=== PATIENT | female | born 1985 | race American Indian/Alaskan Native ===

== ENCOUNTER 2017-10-22 18:30 | Emergency (ER) | payer MEDICAID ==
[2017-10-22 19:11] LABS: Basophils % (Auto) 1.2 % (0.0-1.8); Eosinophils # (Auto) 0.1 K/mm3 (0.0-0.4); Eosinophils % (Auto) 1.3 % (0.0-4.3); Hematocrit 34.1 % (30.3-42.9); Hemoglobin 11.2 gm/dl (10.1-14.3); Lymphocytes # (Auto) 1.5 K/mm3 (1.2-5.4); Lymphocytes % (Auto) 36.6 % (13.4-35.0); Mean Corpuscular HGB Conc 33 % (30-34); Mean Corpuscular Hemoglobin 28 pg (28-32); Mean Corpuscular Volume 84 fl (79-97); Monocytes # (Auto) 0.4 K/mm3 (0.0-0.8); Monocytes % (Auto) 8.3 % (0.0-7.3); Platelet Count 290 K/mm3 (140-440); Red Blood Count 4.05 M/mm3 (3.65-5.03)
[2017-10-22 19:23] LABS: BUN/Creatinine Ratio 18; Blood Urea Nitrogen 11 mg/dL (7-17); Calcium 8.7 mg/dL (8.4-10.2); Hemolysis Index 4
[2017-10-22] MEDS ORDERED: MORPHINE IV ONE (21:41)
[2017-10-22] MEDS ORDERED: CLEOCIN IV ONE (21:41)
[2017-10-22] MEDS ORDERED: TORADOL IV ONE (21:44)
--- NOTE | 2017-10-22 21:45 | Emergency Department Report ---
Abscess Boil HPI - HPI Chief Complaint: Dental/Oral Stated Complaint: SWELLING L SIDE OF FACE. Time Seen by Provider: 10/22/17 21:10 Duration: 1 Day Location: Head Severity: Mild History: Yes Pain, No Fever, No Purulent Drainage, No Numbness, No Foreign Body , No Previous History, No Insect Bite HPI: She was a 32-year-old female with a history of HIV who is not been compliant with her medication due to running out presents to ED complaining of left facial swelling 1 day. Patient states she woke up into the left temperature or vision was swelling and tender to touch. She denies any bite, trauma, injuries. She denies any ear pain, fever or any other problems Home Medications: Previous Rx's Medication Instructions Recorded Last Taken Type Emtricitabine/Tenofovir (Tdf) 1 each PO DAILY #30 tablet 10/22/17 Unknown Rx [Truvada 133 mg-200 mg Tablet] Ibuprofen [Motrin] 800 mg PO Q8HR PRN #30 tablet 10/22/17 Unknown Rx Sulfamethoxazole/Trimethoprim 1 each PO BID #20 tablet 10/22/17 Unknown Rx [Bactrim DS TAB] Allergies/Adverse Reactions: Allergies Allergy/AdvReac Type Severity Reaction Status Date / Time No Known Allergies Allergy Unverified 10/22/17 18:51 ED Review of Systems ROS: Stated complaint: SWELLING L SIDE OF FACE. Other details as noted in HPI Constitutional: denies: chills, fever Eyes: denies: eye pain, eye discharge, vision change ENT: denies: ear pain, throat pain Respiratory: denies: cough, shortness of breath, wheezing Cardiovascular: denies: chest pain, palpitations Endocrine: no symptoms reported Gastrointestinal: denies: abdominal pain, nausea, diarrhea Genitourinary: denies: urgency, dysuria, discharge Musculoskeletal: denies: back pain, joint swelling, arthralgia Skin: denies: rash, lesions Neurological: denies: headache, weakness, paresthesias Psychiatric: denies: anxiety, depression Hematological/Lymphatic: denies: easy bleeding, easy bruising ED Past Medical Hx - Past Medical History Hx HIV: Yes (virus) - Social History Smoking Status: Never Smoker Substance Use Type: None - Medications Home Medications: Home Medications Medication Instructions Recorded Confirmed Last Taken Type Emtricitabine/Tenofovir (Tdf) 1 each PO DAILY #30 tablet 10/22/17 Unknown Rx [Truvada 133 mg-200 mg Tablet] Ibuprofen [Motrin] 800 mg PO Q8HR PRN #30 tablet 10/22/17 Unknown Rx Sulfamethoxazole/Trimethoprim 1 each PO BID #20 tablet 10/22/17 Unknown Rx [Bactrim DS TAB] ED Abscess Boil Physical Exam - Exam General: Vital signs noted. No distress. Alert and acting appropriately. Front/Back of Body, Lg (Color): 1 - 4-5 cm tender mass Size: 5 cm Exam: Yes Tenderness, Yes Lymphangitis, Yes Normal Neurologic Exam, Yes Normal Circulation, No Fluctuance, No Surrounding Cellulites/Erythema, No Heart Murmur Exam: GENERAL: Alert and oriented x3, no apparent distress, Normal Gait, atraumatic. HEAD: Head is normocephalic and a-traumatic. EARS: symetrical, atraumatic, non tender, ear canal clear and moderate cerumen, tympanic membrance non inflamed. gross auditory nml bilaterally. NOSE: Nose symetrical, Nontender,Nares appeared normal. MOUTH:Mouth is well hydrated and without lesions. Tonsils nonerythematous or swollen, Uvula midline, Tongue not elevated. Mucous membranes are moist. Posterior pharynx clear, no exudate or lesions. Patent airways. NECK: Supple. Non edematous, No carotid bruits. No lymphadenopathy or thyromegaly. No C-spine tenderness ED Course Vital Signs 10/22/17 18:45 Temperature 99.1 F Pulse Rate 102 H Respiratory 18 Rate Blood Pressure 109/79 O2 Sat by Pulse 96 Oximetry Critical care attestation.: If time is entered above; I have spent that time in minutes in the direct care of this critically ill patient, excluding procedure time. ED Medical Decision Making - Lab Data Result diagrams: 10/22/17 18:59 10/22/17 18:59 - Radiology Data Radiology results: report reviewed, image reviewed FINAL REPORT PROCEDURE: CT FACIAL BONES WO CON TECHNIQUE: Computerized tomography of the facial bones and soft tissues with axial and coronal sections performed from the cranial aspect of the frontal sinuses to the caudal portion of the mandible without contrast material. HISTORY: pain swelling left TMJ region COMPARISON: No prior studies are available for comparison. FINDINGS: Bones: No significant abnormality. Paranasal sinuses: Mild opacification of the ethmoid sinuses.. Soft tissues: Minimal soft tissue swelling over the left cheek and temporomandibular joint region. No formed fluid collection or abscess.. Other: None. IMPRESSION: There is no evidence of an acute fracture to the facial bones. Mild opacification of the ethmoid sinuses. Minimal soft tissue swelling over the left cheek and temporal mandibular region. No formed abscess or fluid collection. Transcribed By: [facility] Dictated By: JUANCARLOS TOMLINSON MD Electronically Authenticated By: JUANCARLOS TOMLINSON MD Signed Date/Time: 10/22/17 2200 - Medical Decision Making 32-year-old female presents with possible perarotitis/adenopathy ED course: Patient received Toradol for pain, IV fluid, IV clindamycin , CBC BMP shows low wbc , low sodium but within normal limits. CT scan of the facial: See the report above I discussed this with the patient. I discussed the patient that this is an inflammation or infection of her glands. Discussed a airport skilled maintenance supervisor to follow up with infectious disease I discussed with the patient I would refill her Truvada today. She'll go home on antibiotics and pain medication as child. Sinuses fever, or infectious process due to labs. Therefore patient to be sent home on antibiotic therapy I discussed the patient with Rosanne at if worsening symptoms or new onset of symptoms to return to ED immediately. Vital signs are normal patient is in no acute or respiratory distress. ED Disposition Clinical Impression: Acute parotitis, Adenopathy, Cervical lymphadenopathy Disposition: - TO HOME OR SELFCARE Is pt being admited?: No Does the pt Need Aspirin: No Condition: Stable Instructions: Adenitis (ED), Lymphadenopathy (ED), Sialoadenitis (ED) Additional Instructions: Make sure to follow up with the primary care physician as discussed. Take all your medications as you've been prescribed. If you have any worsening symptoms or develop new symptoms please return to ED immediately. Prescriptions: Emtricitabine/Tenofovir (Tdf) [Truvada 133 mg-200 mg Tablet] 1 each PO DAILY # 30 tablet Ibuprofen [Motrin] 800 mg PO Q8HR PRN #30 tablet PRN Reason: Pain Sulfamethoxazole/Trimethoprim [Bactrim DS TAB] 1 each PO BID #20 tablet Referrals: HERMINIA JAIMES MD [Primary Care Provider] - 3-5 Days NAOMI BORGES MD [Referring] - 3-5 Days GLORIA MAHMOOD MD [Referring] - 3-5 Days [facility] [Outside] - 3-5 Days [facility] [Outside] - 3-5 Days Forms: Accompanied Note, Work/School Release Form(ED) Time of Disposition: 22:48
[2017-10-22] MEDS ORDERED: NACL 0.9% 1000 ML 1,000 ML IV ONE (22:03)
--- NOTE | 2017-10-22 22:05 | Cat Scan Report ---
FINAL REPORT PROCEDURE: CT FACIAL BONES WO CON TECHNIQUE: Computerized tomography of the facial bones and soft tissues with axial and coronal sections performed from the cranial aspect of the frontal sinuses to the caudal portion of the mandible without contrast material. HISTORY: pain swelling left TMJ region COMPARISON: No prior studies are available for comparison. FINDINGS: Bones: No significant abnormality. Paranasal sinuses: Mild opacification of the ethmoid sinuses.. Soft tissues: Minimal soft tissue swelling over the left cheek and temporomandibular joint region. No formed fluid collection or abscess.. Other: None. IMPRESSION: There is no evidence of an acute fracture to the facial bones. Mild opacification of the ethmoid sinuses. Minimal soft tissue swelling over the left cheek and temporal mandibular region. No formed abscess or fluid collection.
[2017-10-22 23:20] VITALS: BP 100/70
== END 2017-10-22 23:22 | disposition home or self-care (01) ==
LOC: ED 18:30
DX: K11.21 Acute sialoadenitis (principal); R59.0 Localized enlarged lymph nodes
CPT/HCPCS: 36415; 70486; 80048; 85025; 96361; 96374; 96375; 99284; J1885; J7030

== ENCOUNTER 2017-12-14 16:34 | Emergency (ER) | payer MEDICAID ==
--- NOTE | 2017-12-14 20:36 | Emergency Department Report ---
HPI - General Chief Complaint: Pain General Time Seen by Provider: 12/14/17 20:26 - HPI HPI: This is a 32-year-old female with a history of HIV who presents to the ED again for left sided jaw pain and swelling times a couple days. Patient was seen here with similar symptoms. Patient states that she took antibiotics and symptoms are sided but now symptoms came back a couple days ago. Patient states she's been having some pain on her left jaw. She denies fevers/chills/ nausea or vomiting she denies any trauma or injuries ED Past Medical Hx - Past Medical History Previous Medical History?: Yes Hx HIV: Yes (virus) Additional medical history: VAGINAL DELIVERY X 2 - Surgical History Past Surgical History?: Yes Additional Surgical History: X 2 - Social History Smoking Status: Never Smoker Substance Use Type: Alcohol, Prescribed - Medications Home Medications: Home Medications Medication Instructions Recorded Confirmed Last Taken Type Emtricitabine/Tenofovir (Tdf) 1 each PO DAILY #30 tablet 10/22/17 Unknown Rx [Truvada 133 mg-200 mg Tablet] Sulfamethoxazole/Trimethoprim 1 each PO BID #20 tablet 10/22/17 Unknown Rx [Bactrim DS TAB] Acetaminophen/Codeine [Tylenol 1 tab PO Q6H PRN #12 tab 12/14/17 Unknown Rx /Codeine # 3 tab] Amoxicillin/K Clav Tab [Augmentin 1 tab PO Q12HR #20 tab 12/14/17 Unknown Rx 875 mg] Pnv No.95/Ferrous Fum/Folic AC 1 each PO DAILY #40 tablet 12/14/17 Unknown Rx [ Formula Tablet] ED Review of Systems ROS: Stated complaint: FACE PAIN Other details as noted in HPI Constitutional: denies: chills, fever Eyes: denies: eye pain, eye discharge, vision change ENT: denies: ear pain, throat pain Respiratory: denies: cough, shortness of breath, wheezing Cardiovascular: denies: chest pain, palpitations Endocrine: no symptoms reported Gastrointestinal: denies: abdominal pain, nausea, diarrhea Genitourinary: denies: urgency, dysuria, discharge Musculoskeletal: denies: back pain, joint swelling, arthralgia Skin: denies: rash, lesions Neurological: denies: headache, weakness, paresthesias Psychiatric: denies: anxiety, depression Hematological/Lymphatic: denies: easy bleeding, easy bruising Physical Exam - Physical Exam Vital Signs: Vital Signs 12/14/17 17:17 Temperature 99.3 F Pulse Rate 96 H Respiratory 18 Rate Blood Pressure 113/59 O2 Sat by Pulse 100 Oximetry Physical Exam: GENERAL: Alert and oriented x3, mild distress, tear ful due to pain. Normal Gait , atraumatic. HEAD: Head is normocephalic and a-traumatic. EYES: Extra ocular muscles are intact. Pupils are equal, round, and reactive to light and accommodation. EARS: symetrical, atraumatic, non tender, ear canal clear and moderate cerumen, tympanic membrance inflamed on left . gross auditory nml bilaterally. NOSE: Nose symetrical, Nontender,Nares appeared normal. MOUTH:Mouth is well hydrated and without lesions. Tonsils nonerythematous or swollen, Uvula midline, Tongue not elevated. Mucous membranes are moist. Posterior pharynx clear, no exudate or lesions. Patent airways. NECK: Supple. parotid gland edematous left sided, . mild lymphadenopathy , no thyromegaly. No C-spine tenderness LUNGS: Symetrical with respiration, No wheezing, no rales or crackles, CTAB. HEART: S1, S2 present, regular rate and rhythm without murmur, no rubs, no gallops. Non tender to palpation NEUROLOGIC: The patient is cooperative with no focal neurologic deficits. Cranial nerves II through XII are grossly intact. Normal speech. SKIN: Warm and dry, No lesions, No ulceration or induration present. ED Course Vital Signs 12/14/17 17:17 Temperature 99.3 F Pulse Rate 96 H Respiratory 18 Rate Blood Pressure 113/59 O2 Sat by Pulse 100 Oximetry ED Medical Decision Making - Lab Data Result diagrams: 12/14/17 21:11 12/14/17 21:11 - Medical Decision Making 32-year-old female presents with left parotitis ED course: Patient received morphine for pain, IV clindamycin CBC ,BMP, urinalysis, urine tests are ordered. IV fluids given to replenish mild dehydration indicated with BMP. test was positive. I discussed his findings with the patient. I discussed the patient will be given [employer] referral CT scan of the head and neck discontinued due to patient's positive test I discussed results with palpation. I discussed this with the patient. I discussed the patient that this is an inflammation or infection of her glands. Discussed with the patient to follow up with infectious disease doctor as well as her primary care physician. go home on antibiotics and pain medication.. Discussed case with Dr. Cristy Anne to attending who assessed the patient and recommended the patient sent home on Augmentin. Therefore patient to be sent home on antibiotic therapy. I discussed the patient with Rosanne at if worsening symptoms or new onset of symptoms to return to ED immediately. Vital signs are normal patient is in no acute or respiratory distress. Critical care attestation.: If time is entered above; I have spent that time in minutes in the direct care of this critically ill patient, excluding procedure time. ED Disposition Clinical Impression: Parotitis, Positive blood test Disposition: TO HOME OR SELFCARE Is pt being admited?: No Does the pt Need Aspirin: No Condition: Stable Instructions: (ED), Mumps (ED), Parotidectomy (ED), Parotid Duct Obstruction (ED) Additional Instructions: Make sure to follow up with the primary care physician as discussed. Take all your medications as you've been prescribed. If you have any worsening symptoms or develop new symptoms please return to ED immediately. Prescriptions: Acetaminophen/Codeine [Tylenol /Codeine # 3 tab] 1 tab PO Q6H PRN #12 tab PRN Reason: Pain Amoxicillin/K Clav Tab [Augmentin 875 mg] 1 tab PO Q12HR #20 tab Pnv No.95/Ferrous Fum/Folic AC [ Formula Tablet] 1 each PO DAILY #40 tablet Referrals: [facility] [Outside] - 3-5 Days [facility] [Outside] - 3-5 Days OLGA LIDIA SINGH MD [Referring] - 3-5 Days PRIMARY CARE, [Primary Care Provider] - 3-5 Days PARTH LYNN MD [Referring] - 3-5 Days KIMBERLY JUAN MD [Referring] - 3-5 Days OSCAR JUAN MD [Staff Physician] - 3-5 Days GARY JUAN MD [Staff Physician] - 3-5 Days Forms: Accompanied Note, Work/School Release Form(ED)
[2017-12-14] MEDS ORDERED: MORPHINE IV ONE (20:39)
--- NOTE | 2017-12-14 20:54 | Emergency Department Report ---
Blank Doc - Documentation Documentation: I evaluated Ms. Mayorga. She is a 32-year-old female with history of HIV. She has had left the auricular swelling for several days. Tender to touch. On my examination there is a flesh colored tender mass anterior and inferior to left ear. I suspect parotitis. I suggested prescription for Augmentin. I recommended warm compresses. No evidence of neck or airway involvement.
[2017-12-14 21:38] LABS: Hematocrit 29.3 % (30.3-42.9); Mean Corpuscular Hemoglobin 29 pg (28-32); Mean Corpuscular Volume 85 fl (79-97); Red Blood Count 3.44 M/mm3 (3.65-5.03)
[2017-12-14 21:39] LABS: Basophils # (Auto) 0.1 K/mm3 (0.0-0.1); Basophils % (Auto) 0.9 % (0.0-1.8); Eosinophils % (Auto) 0.5 % (0.0-4.3); Lymphocytes % (Auto) 22.7 % (13.4-35.0); Mean Corpuscular HGB Conc 34 % (30-34); Monocytes # (Auto) 0.7 K/mm3 (0.0-0.8); Monocytes % (Auto) 7.5 % (0.0-7.3); Platelet Count 304 K/mm3 (140-440); Red Cell Distribution Width 16.6 % (13.2-15.2)
[2017-12-14 21:40] LABS: BUN/Creatinine Ratio 16; Blood Urea Nitrogen 8 mg/dL (7-17); Calcium 8.6 mg/dL (8.4-10.2); Hemolysis Index 18
[2017-12-14] MEDS ORDERED: NACL 0.9% 1000 ML 1,000 ML IV ONE (22:10)
[2017-12-14 23:10] VITALS: BP 111/64
[2017-12-14] MEDS ORDERED: TYLENOL PO ONE (23:13)
[2017-12-15] MEDS ORDERED: CLEOCIN 300 MG/50 mL 300 MG/50 ML BAG IV ONE (21:37)
== END 2017-12-15 | disposition home or self-care (01) ==
LOC: ED 16:34
DX: K11.20 Sialoadenitis, unspecified (principal); R10.2 Pelvic and perineal pain; Z33.1 Pregnant state, incidental
CPT/HCPCS: 36415; 80048; 84702; 84703; 85025; 96365; 96375; 99283; J2270; J7030; 96361

== ENCOUNTER 2017-12-18 13:48 | Emergency (ER) | payer MEDICAID ==
[2017-12-18 14:05] VITALS: BP 101/60
[2017-12-18 15:00] LABS: Basophils % (Auto) 0.7 % (0.0-1.8); Eosinophils # (Auto) 0.1 K/mm3 (0.0-0.4); Eosinophils % (Auto) 1.5 % (0.0-4.3); Hematocrit 31.4 % (30.3-42.9); Hemoglobin 10.3 gm/dl (10.1-14.3); Lymphocytes # (Auto) 1.4 K/mm3 (1.2-5.4); Lymphocytes % (Auto) 31.6 % (13.4-35.0); Mean Corpuscular HGB Conc 33 % (30-34); Mean Corpuscular Hemoglobin 28 pg (28-32); Mean Corpuscular Volume 86 fl (79-97); Monocytes # (Auto) 0.5 K/mm3 (0.0-0.8); Monocytes % (Auto) 12.1 % (0.0-7.3); Platelet Count 351 K/mm3 (140-440); Red Blood Count 3.68 M/mm3 (3.65-5.03); Red Cell Distribution Width 16.3 % (13.2-15.2)
--- NOTE | 2017-12-18 16:39 | Ultrasound Report ---
FINAL REPORT EXAM: US OB TRANSVAGINAL HISTORY: vag bleeding, TECHNIQUE: Ultrasound transvaginal obstetrical PRIORS: None. FINDINGS: There is a gestational sac within the uterus. There is a pole present with crown-rump length 1.38 centimeters corresponding to estimated gestational age 7 weeks 5 days. There is no evidence for cardiac activity on pulsed and color Doppler evaluation. Right ovary is 2.8 x 1.4 x 2.5 centimeters Left ovary is 3.1 x 1.5 x 2.2 centimeters. No abnormal adnexal mass identified. No free fluid identified within the cul-de-sac IMPRESSION: pole measuring 7 weeks 5 days. No cardiac activity identified. Findings most consistent with demise
--- NOTE | 2017-12-18 16:41 | Ultrasound Report ---
FINAL REPORT EXAM: US OB < = 14 WEEKS FETUS HISTORY: vag bleeding, TECHNIQUE: Ultrasound obstetrical transabdominal PRIORS: None. FINDINGS: There is a gestational sac within the uterus. There is a pole present with crown-rump length 1.38 centimeters corresponding to estimated gestational age 7 weeks 5 days. There is no evidence for cardiac activity on pulsed and color Doppler evaluation. Right ovary is 2.8 x 1.4 x 2.5 centimeters Left ovary is 3.1 x 1.5 x 2.2 centimeters. No abnormal adnexal mass identified. No free fluid identified within the cul-de-sac IMPRESSION: pole measuring 7 weeks 5 days. No cardiac activity identified. Findings most consistent with demise
--- NOTE | 2017-12-18 17:05 | Emergency Department Report ---
ED HPI - General Chief complaint: Vaginal Bleeding Stated complaint: POSSIBLE MISCARRIAGE Time Seen by Provider: 12/18/17 16:08 Source: patient Mode of arrival: Wheelchair Limitations: No Limitations - History of Present Illness Initial comments: This is a 32-year-old female nontoxic, well nourished in appearance, no acute signs of distress presents to the ED with c/o of vaginal bleeding x2 days. Patient stated yesterday she noticed some spotting and today had spotting all day. Patient denies any abdominal or pelvic pain. Patient denies any nausea , vomiting, chest pain, shortness of breathe, fever, chills, headache, stiff neck, numbness, tingling. Patient denies any urinary symptoms. Patient denies any allergies. PMH includes HIV. MD Complaint: vaginal bleeding -: days(s) (2) Radiation: none Severity: mild Severity scale (0 -10): 0 Improves with: none Worsens with: none Associated symptoms: vaginal bleeding. denies: nausea/vomiting, vaginal discharge, abdominal pain, dysuria, headache, vision changes, malaise, dysparuenia, rash, seizure, shortness of breath, syncope, weakness Vaginal bleeding: none :: Yes Number of weeks : 8 OB History - Current : no complications OB History - Previous Pregnancies: no complications Pre-daniel care: none - Related Data : 3 Para: 4 Previous Rx's Medication Instructions Recorded Last Taken Type Emtricitabine/Tenofovir (Tdf) 1 each PO DAILY #30 tablet 10/22/17 Unknown Rx [Truvada 133 mg-200 mg Tablet] Sulfamethoxazole/Trimethoprim 1 each PO BID #20 tablet 10/22/17 Unknown Rx [Bactrim DS TAB] Acetaminophen/Codeine [Tylenol 1 tab PO Q6H PRN #12 tab 12/14/17 Unknown Rx /Codeine # 3 tab] Amoxicillin/K Clav Tab [Augmentin 1 tab PO Q12HR #20 tab 12/14/17 Unknown Rx 875 mg] Pnv No.95/Ferrous Fum/Folic AC 1 each PO DAILY #40 tablet 12/14/17 Unknown Rx [ Formula Tablet] Acetaminophen/Codeine [Tylenol 1 tab PO Q6H PRN #12 tab 12/18/17 Unknown Rx /Codeine # 3 tab] Allergies Allergy/AdvReac Type Severity Reaction Status Date / Time No Known Allergies Allergy Verified 12/14/17 21:38 ED Review of Systems ROS: Stated complaint: POSSIBLE MISCARRIAGE Other details as noted in HPI Constitutional: denies: chills, fever Eyes: denies: eye pain, eye discharge, vision change ENT: denies: ear pain, throat pain Respiratory: denies: cough, shortness of breath, wheezing Cardiovascular: denies: chest pain, palpitations Endocrine: no symptoms reported Gastrointestinal: denies: abdominal pain, nausea, diarrhea Genitourinary: denies: urgency, dysuria, discharge Musculoskeletal: denies: back pain, joint swelling, arthralgia Skin: denies: rash, lesions Neurological: denies: headache, weakness, paresthesias Psychiatric: denies: anxiety, depression Hematological/Lymphatic: denies: easy bleeding, easy bruising ED Past Medical Hx - Past Medical History Previous Medical History?: Yes Hx HIV: Yes (virus) Additional medical history: VAGINAL DELIVERY X 2 - Surgical History Past Surgical History?: Yes Additional Surgical History: X 2 - Social History Smoking Status: Never Smoker Substance Use Type: None - Medications Home Medications: Home Medications Medication Instructions Recorded Confirmed Last Taken Type Emtricitabine/Tenofovir (Tdf) 1 each PO DAILY #30 tablet 10/22/17 Unknown Rx [Truvada 133 mg-200 mg Tablet] Sulfamethoxazole/Trimethoprim 1 each PO BID #20 tablet 10/22/17 Unknown Rx [Bactrim DS TAB] Acetaminophen/Codeine [Tylenol 1 tab PO Q6H PRN #12 tab 12/14/17 Unknown Rx /Codeine # 3 tab] Amoxicillin/K Clav Tab [Augmentin 1 tab PO Q12HR #20 tab 12/14/17 Unknown Rx 875 mg] Pnv No.95/Ferrous Fum/Folic AC 1 each PO DAILY #40 tablet 12/14/17 Unknown Rx [ Formula Tablet] Acetaminophen/Codeine [Tylenol 1 tab PO Q6H PRN #12 tab 12/18/17 Unknown Rx /Codeine # 3 tab] ED Physical Exam - General Limitations: No Limitations General appearance: alert, in no apparent distress - Head Head exam: Present: atraumatic, normocephalic - Eye Eye exam: Present: normal appearance Pupils: Present: normal accommodation - ENT ENT exam: Present: normal exam, mucous membranes moist - Neck Neck exam: Present: normal inspection, full ROM. Absent: tenderness, meningismus, lymphadenopathy - Respiratory Respiratory exam: Present: normal lung sounds bilaterally. Absent: respiratory distress, wheezes, rales, rhonchi, stridor, chest wall tenderness, accessory muscle use, decreased breath sounds, prolonged expiratory - Cardiovascular Cardiovascular Exam: Present: regular rate, normal rhythm, normal heart sounds. Absent: bradycardia, tachycardia, irregular rhythm, systolic murmur, diastolic murmur, rubs, gallop - GI/Abdominal GI/Abdominal exam: Present: soft, normal bowel sounds. Absent: distended, tenderness, guarding, rebound, rigid, diminished bowel sounds - Extremities Exam Extremities exam: Present: normal inspection, full ROM, normal capillary refill - Back Exam Back exam: Present: normal inspection, full ROM. Absent: tenderness, CVA tenderness (R), CVA tenderness (L), paraspinal tenderness, vertebral tenderness - Neurological Exam Neurological exam: Present: alert, oriented X3, normal gait - Psychiatric Psychiatric exam: Present: normal affect, normal mood - Skin Skin exam: Present: warm, dry, intact, normal color. Absent: rash ED Course Vital Signs 12/18/17 13:59 Temperature 98.5 F Pulse Rate 87 Respiratory 16 Rate Blood Pressure 101/60 O2 Sat by Pulse 98 Oximetry - Reevaluation(s) Reevaluation #1: 12/18/17 17:40 Patient is speaking in full sentences with no signs of distress noted. ED Medical Decision Making - Lab Data Result diagrams: 12/18/17 14:43 - Medical Decision Making This is a 32-year-old female presents with miscarriage. Patient is stable and was examined by me. Normal abdominal exam. My W[employer] Dr. Martel was consulted for demise in US report and stated as long as H/H labs are within normal limits patient can be followed as outpatient with medications vs. D/C procedure. US OB obtained and dictated by the radiologist. Quantative serum test obtained. Patient notified of the US report with no questions noted by the patient. RH factor positive. Labs within normal limits. Patient was referred to Follow-up with a W[employer] F[employer] OPERATOR in 2-3 days days or if symptoms worsen and continue return to emergency room as soon as possible. At time of discharge, the patient does not seem toxic or ill in appearance. No acute signs of distress noted. Patient agrees to discharge treatment plan of care. No further questions noted by the patient. Critical care attestation.: If time is entered above; I have spent that time in minutes in the direct care of this critically ill patient, excluding procedure time. ED Disposition Clinical Impression: Miscarriage Disposition: DC-01 TO HOME OR SELFCARE Is pt being admited?: No Does the pt Need Aspirin: No Condition: Stable Instructions: Spontaneous Miscarriage (ED), Acetaminophen/Codeine (By mouth) Additional Instructions: Follow-up with a [facility] F[employer] OPERATOR in 2-3 days days or if symptoms worsen and continue return to emergency room as soon as possible. Prescriptions: Acetaminophen/Codeine [Tylenol /Codeine # 3 tab] 1 tab PO Q6H PRN #12 tab PRN Reason: Pain Referrals: PRIMARY CARE, [Primary Care Provider] - 3-5 Days [facility] [Provider Group] - 3-5 Days GARY JUAN MD [Staff Physician] - 3-5 Days [facility] [Outside] - 3-5 Days Forms: Work/School Release Form(ED)
[2017-12-18 17:25] LABS: Bilirubin,Urine NEG (Negative); Blood,Urine MOD (Negative); Color,Urine Yellow (Yellow); Mucus,Urine FEW /HPF; Protein,Urine <15 mg/dL mg/dL (Negative)
== END 2017-12-18 18:20 | disposition home or self-care (01) ==
LOC: ED 13:48
DX: O03.9 Complete or unspecified spontaneous abortion without complication (principal); Z3A.08 8 weeks gestation of pregnancy
CPT/HCPCS: 36415; 76801; 76817; 81001; 84702; 85025; 86900; 86901

== ENCOUNTER 2019-03-08 18:37 | Emergency (ER) | payer SELFPAY ==
--- NOTE | 2019-03-08 18:54 | Emergency Department Report ---
Blank Doc - Documentation Documentation: This is a 34-year-old female that presents with URI symptoms. This initial assessment/diagnostic orders/clinical plan/treatment(s) is/are subject to change based on patient's health status, clinical progression and re- assessment by fellow clinical providers in the ED. Further treatment and workup at subsequent clinical providers discretion. Patient/guardians urged not to elope from the ED as their condition may be serious if not clinically assessed and managed. Initial orders include: 1- Patient sent to [facility] for further evaluation and treatment 2- cxr
[2019-03-08 18:56] VITALS: BP 105/76
--- NOTE | 2019-03-08 19:31 | XRay Report ---
CHEST 2 VIEWS INDICATION / CLINICAL INFORMATION: cough. COMPARISON: None available. FINDINGS: SUPPORT DEVICES: None. HEART / MEDIASTINUM: No significant abnormality. LUNGS / PLEURA: No significant pulmonary or pleural abnormality. No pneumothorax. ADDITIONAL FINDINGS: No significant additional findings. IMPRESSION: 1. No acute findings. Signer Name: Roxana Ruth MD Signed: 03/08/2019 7:27 PM Workstation Name: [id number]
[2019-03-08] MEDS ORDERED: IBUPROFEN PO ONE (19:46)
[2019-03-08] MEDS ORDERED: DELTASONE PO ONE (19:46)
--- NOTE | 2019-03-08 19:55 | Emergency Department Report ---
- General Chief Complaint: Upper Respiratory Infection Stated Complaint: COLD Time Seen by Provider: 03/08/19 18:53 Source: patient Mode of arrival: Ambulatory Limitations: No Limitations - History of Present Illness Initial Comments: Patient is a 34 yo AA female with no past medical history who presents to the ED with c/o acute onset persistent nasal and sinus congestion, dry cough, frontal headache and pressure for the last 2 days. Patient states that her other children have had similar symptoms. Patient denies fever, chills, dizziness, nausea, vomiting, diarrhea, abdominal pain, chest pain and dyspnea or sore throat. MD Complaint: cough, rhinorrhea, nasal congestion, sinus pain -: Sudden, days(s) (2) Severity: moderate Severity scale (0 -10): 5 Quality: sharp Consistency: intermittent Improves With: nothing, cough suppressant Worsens With: nothing Context: sick contacts Associated Symptoms: denies other symptoms, headache, rhinorrhea, nasal congestion, cough. denies: fever, chills, myalgias, diaphoresis, sore throat, stiff neck, chest pain, shortness of breath, nausea, vomiting, diarrhea, dysuria, rash, confusion, right sweats, weight loss, epistaxis, hoarseness, ear pain Treatments Prior to Arrival: none - Related Data Previous Rx's Medication Instructions Recorded Last Taken Type Emtricitabine/Tenofovir (Tdf) 1 each PO DAILY #30 tablet 10/22/17 Unknown Rx [Truvada 133 mg-200 mg Tablet] Sulfamethoxazole/Trimethoprim 1 each PO BID #20 tablet 10/22/17 Unknown Rx [Bactrim DS TAB] Acetaminophen/Codeine [Tylenol 1 tab PO Q6H PRN #12 tab 12/14/17 Unknown Rx /Codeine # 3 tab] Amoxicillin/K Clav Tab [Augmentin 1 tab PO Q12HR #20 tab 12/14/17 Unknown Rx 875 mg] Pnv No.95/Ferrous Fum/Folic AC 1 each PO DAILY #40 tablet 12/14/17 Unknown Rx [ Formula Tablet] Acetaminophen/Codeine [Tylenol 1 tab PO Q6H PRN #12 tab 12/18/17 Unknown Rx /Codeine # 3 tab] Amoxicillin [Trimox CAP] 500 mg PO Q8H #30 capsule 03/08/19 Unknown Rx Benzonatate [Tessalon Perles] 100 mg PO Q8HR #30 capsule 03/08/19 Unknown Rx Ibuprofen [Motrin] 400 mg PO Q8H PRN #20 tablet 03/08/19 Unknown Rx methylPREDNISolone [Medrol 4MG 4 mg PO DAILY #21 tab.ds.pk 03/08/19 Unknown Rx DOSEPAK (21 tabs)] Allergies Allergy/AdvReac Type Severity Reaction Status Date / Time No Known Allergies Allergy Verified 03/08/19 18:39 ED Review of Systems ROS: Stated complaint: COLD Other details as noted in HPI Constitutional: denies: chills, fever Eyes: denies: eye pain, eye discharge, vision change ENT: congestion, other. denies: ear pain, throat pain Respiratory: cough. denies: shortness of breath, SOB with exertion, SOB at rest, wheezing Cardiovascular: denies: chest pain, palpitations Endocrine: no symptoms reported Gastrointestinal: denies: abdominal pain, nausea, diarrhea Genitourinary: denies: urgency, dysuria, discharge Musculoskeletal: denies: back pain, joint swelling, arthralgia Skin: denies: rash, lesions Neurological: denies: headache, weakness, paresthesias Psychiatric: denies: anxiety, depression Hematological/Lymphatic: denies: easy bleeding, easy bruising ED Past Medical Hx - Past Medical History Hx HIV: Yes (virus) Additional medical history: VAGINAL DELIVERY X 2 - Surgical History Additional Surgical History: X 2 - Social History Smoking Status: Never Smoker Substance Use Type: None - Medications Home Medications: Home Medications Medication Instructions Recorded Confirmed Last Taken Type Emtricitabine/Tenofovir (Tdf) 1 each PO DAILY #30 tablet 10/22/17 Unknown Rx [Truvada 133 mg-200 mg Tablet] Sulfamethoxazole/Trimethoprim 1 each PO BID #20 tablet 10/22/17 Unknown Rx [Bactrim DS TAB] Acetaminophen/Codeine [Tylenol 1 tab PO Q6H PRN #12 tab 12/14/17 Unknown Rx /Codeine # 3 tab] Amoxicillin/K Clav Tab [Augmentin 1 tab PO Q12HR #20 tab 12/14/17 Unknown Rx 875 mg] Pnv No.95/Ferrous Fum/Folic AC 1 each PO DAILY #40 tablet 12/14/17 Unknown Rx [ Formula Tablet] Acetaminophen/Codeine [Tylenol 1 tab PO Q6H PRN #12 tab 12/18/17 Unknown Rx /Codeine # 3 tab] Amoxicillin [Trimox CAP] 500 mg PO Q8H #30 capsule 03/08/19 Unknown Rx Benzonatate [Tessalon Perles] 100 mg PO Q8HR #30 capsule 03/08/19 Unknown Rx Ibuprofen [Motrin] 400 mg PO Q8H PRN #20 tablet 03/08/19 Unknown Rx methylPREDNISolone [Medrol 4MG 4 mg PO DAILY #21 tab.ds.pk 03/08/19 Unknown Rx DOSEPAK (21 tabs)] ED Physical Exam - General Limitations: No Limitations General appearance: alert, in no apparent distress - Head Head exam: Present: atraumatic, normocephalic, normal inspection - Eye Eye exam: Present: normal appearance, PERRL, EOMI Pupils: Present: normal accommodation - ENT ENT exam: Present: normal orophraynx, mucous membranes moist, TM's normal bilaterally, normal external ear exam, other (Grossly congested nasal passages; Frontal sinus tenderness) - Neck Neck exam: Present: normal inspection, full ROM. Absent: tenderness, meningismus, lymphadenopathy, thyromegaly - Respiratory Respiratory exam: Present: normal lung sounds bilaterally. Absent: respiratory distress, wheezes, rales, rhonchi, chest wall tenderness - Cardiovascular Cardiovascular Exam: Present: regular rate, normal rhythm, normal heart sounds. Absent: systolic murmur, diastolic murmur, rubs, gallop - GI/Abdominal GI/Abdominal exam: Present: soft, normal bowel sounds. Absent: distended, tend erness, hyperactive bowel sounds, hypoactive bowel sounds, organomegaly - Rectal Rectal exam: Present: deferred - Extremities Exam Extremities exam: Present: normal inspection, full ROM, normal capillary refill - Back Exam Back exam: Present: normal inspection, full ROM. Absent: tenderness, CVA tenderness (R), CVA tenderness (L), muscle spasm, paraspinal tenderness, vertebral tenderness - Neurological Exam Neurological exam: Present: alert, oriented X3, CN II-XII intact, normal gait, reflexes normal - Psychiatric Psychiatric exam: Present: normal affect, normal mood - Skin Skin exam: Present: warm, dry, intact, normal color. Absent: rash ED Course Vital Signs 03/08/19 18:53 Temperature 98.7 F Pulse Rate 67 Respiratory 16 Rate Blood Pressure 105/76 O2 Sat by Pulse 100 Oximetry - Reevaluation(s) Reevaluation #1: 03/08/19 20:05 This is 34-year-old female who presented to the ED with nasal and sinus congestion, dry cough, frontal sinus pressure and headache for the last 2 days. Patient is alert and oriented 3 and is not in distress in the ED. The vital signs are stable. Chest x-ray shows no acute cardiopulmonary monitors. Patient was discharged home on medications and advised follow-up with her primary care physician in 7-10 days for reevaluation. Patient is advised to return to the ED immediately if symptoms get worse. ED Medical Decision Making - Radiology Data Radiology results: report reviewed, image reviewed Chest x-ray shows no acute cardiopulmonary abnormalities. - Medical Decision Making This is 34-year-old female who presented to the ED with nasal and sinus congestion, dry cough, frontal sinus pressure and headache for the last 2 days. Patient is alert and oriented 3 and is not in distress in the ED. The vital signs are stable. Chest x-ray shows no acute cardiopulmonary monitors. Patient was discharged home on medications and advised follow-up with her primary care physician in 7-10 days for reevaluation. Patient is advised to return to the ED immediately if symptoms get worse. - Differential Diagnosis acute URI; Sinusitis, Bronchitis, pharyngitis Critical care attestation.: If time is entered above; I have spent that time in minutes in the direct care of this critically ill patient, excluding procedure time. ED Disposition Clinical Impression: Acute upper respiratory infection Acute bronchitis Qualifiers: Bronchitis organism: unspecified organism Qualified Code(s): J20.9 - Acute bronchitis, unspecified Acute frontal sinusitis Qualifiers: Recurrence: non-recurrent Qualified Code(s): J01.10 - Acute frontal sinusitis, unspecified Disposition: DC-01 TO HOME OR SELFCARE Is pt being admited?: No Does the pt Need Aspirin: No Condition: Stable Instructions: Acute Bronchitis (ED), Acute Bacterial Rhinosinusitis (ED), Upper Respiratory Infection (ED) Additional Instructions: Take medications with food, drink plenty of fluids and follow up with your Primary Care Physician in 7-10 days for reevaluation. Return to the ED immediately if symptoms get worse. Prescriptions: methylPREDNISolone [Medrol 4MG DOSEPAK (21 tabs)] 4 mg PO DAILY #21 tab.ds.pk Ibuprofen [Motrin] 400 mg PO Q8H PRN #20 tablet PRN Reason: Pain , Severe (7-10) Benzonatate [Tessalon Perles] 100 mg PO Q8HR #30 capsule Amoxicillin [Trimox CAP] 500 mg PO Q8H #30 capsule Referrals: LUCILLE SEO MD [Primary Care Provider] - 3-5 Days Time of Disposition: 19:56 Print Language: TAMAZIGHT
== END 2019-03-08 20:35 | disposition home or self-care (01) ==
LOC: ED 18:37
DX: J06.9 Acute upper respiratory infection, unspecified (principal); J20.9 Acute bronchitis, unspecified; J01.10 Acute frontal sinusitis, unspecified; Z79.899 Other long term (current) drug therapy; Z79.1 Long term (current) use of non-steroidal anti-inflammatories (NSAID); Z21 Asymptomatic human immunodeficiency virus [HIV] infection status
CPT/HCPCS: 71046; 99283; J7512